=== PATIENT | female | born 1980 | race Two or more races ===

== ENCOUNTER 2018-12-18 22:19 | Emergency (ER) | payer OTHER ==
[~2018-12-18] VITALS: Ht 154.9 cm; Wt 81.1 kg
--- NOTE | 2018-12-18 23:16 | NUR ---
pt to room from lobby, pt c/o fever/cough cold, taking otc meds.
[2018-12-18] MEDS ORDERED: ALBUTEROL/IPRATROPIUM 2.5MG/0.5MG, 3 ML NPPB ONE (23:30)
[2018-12-18] MEDS ORDERED: IBUPROFEN 600 MG TABLET PO ONE (23:30)
[2018-12-18] MEDS ORDERED: DEXAMETHASONE 4 MG TABLET PO ONE (23:30)
[2018-12-18] MEDS ORDERED: ONDANSETRON ODT 4 MG PO ONE (23:30)
[2018-12-18] MEDS ORDERED: DEXAMETHASONE 4 MG TABLET ONE (23:34)
[2018-12-18] MEDS ORDERED: ONDANSETRON ODT 4 MG ONE (23:35)
[2018-12-18] MEDS ORDERED: IBUPROFEN 600 MG TABLET ONE (23:35)
[2018-12-18] MEDS ORDERED: ALBUTEROL/IPRATROPIUM 2.5MG/0.5MG, 3 ML ONE (23:35)
--- NOTE | 2018-12-19 00:01 | NUR ---
pt medicated, pt awaiting results. explained poc and pt resting.
[2018-12-19 00:06] LABS: RAPID INFLUENZA A Negative (Negative); RAPID INFLUENZA B Negative (Negative)
[2018-12-19 00:31] VITALS: BP 103/56
== END 2018-12-19 00:33 | disposition home or self-care (01) ==
LOC: ED 12-19 00:27
DX: J20.8 Acute bronchitis due to other specified organisms (principal); B96.89 Other specified bacterial agents as the cause of diseases classified elsewhere; J02.8 Acute pharyngitis due to other specified organisms
CPT/HCPCS: 71046; 87081; 87400; 87880; 99284; Q0162